=== PATIENT | female | born 1945 | race Two or more races ===

== ENCOUNTER → 2019-01-05 | Outpatient (CLI) | payer OTHER ==
[~2019-01-05] VITALS: Ht 152.4 cm; Wt 67.1 kg
[~2019-01-05] MED LIST: FLONASE16 GM NASAL
== END | disposition home or self-care (01) ==
LOC: OFIC 805 07:22
DX: H60.593 Other noninfective acute otitis externa, bilateral (principal); J31.0 Chronic rhinitis; H61.22 Impacted cerumen, left ear

== ENCOUNTER 2021-04-11 11:50 | Outpatient (CLI) | payer OTHER | END 2021-04-11 12:08 | disposition home or self-care (01) | LOC: MAMO-SONO 11:50 | PROVIDERS: ATTEND Otolaryngology | DX: Z12.31 Encounter for screening mammogram for malignant neoplasm of breast (principal); Z87.898 Personal history of other specified conditions; N60.11 Diffuse cystic mastopathy of right breast; N60.12 Diffuse cystic mastopathy of left breast; N85.2 Hypertrophy of uterus; N85.01 Benign endometrial hyperplasia ==